=== PATIENT | female | born 1990 | race Two or more races ===

== ENCOUNTER 2025-06-20 02:04 | Emergency (ER) | payer OTHER ==
[~2025-06-20] VITALS: Ht 157.5 cm; Wt 68.2 kg
[2025-06-20 02:06] VITALS: TEMP 98.1
[2025-06-20] MEDS: ACETAMINOPHEN 500 MG TABLET PO ONE (02:34)
[2025-06-20] MEDS: IBUPROFEN 400 MG TABLET PO ONE (02:34)
[2025-06-20 04:36] VITALS: BP 137/93; PULSE 80; RESP 16; O2SAT 99
== END 2025-06-20 04:37 | disposition home or self-care (01) ==
LOC: EMS 02:07
DX: S09.90XA Unspecified injury of head, initial encounter (principal); J45.909 Unspecified asthma, uncomplicated; F41.9 Anxiety disorder, unspecified; Y08.89XA Assault by other specified means, initial encounter; Y93.89 Activity, other specified; Y92.89 Other specified places as the place of occurrence of the external cause; Y99.0 Civilian activity done for income or pay
CPT/HCPCS: 99283